=== PATIENT | female | born 1945 | race Caucasian/White ===

== ENCOUNTER 2022-07-03 18:56 | Observation (INO) | payer MEDICARE, OTHER ==
[2022-07-03] MEDS ORDERED: solu-MEDROL 125 MG, Sterile H2O 10 ml 2 ML IV ONE ×2 (19:26)
[2022-07-03] MEDS ORDERED: DUONEB 0.5-3 MG/3 ml Neb IH ONE ×2 (19:26→19:31)
[2022-07-03] MEDS ORDERED: solu-MEDROL ONE (19:30)
[2022-07-03] MEDS ORDERED: Sterile H2O 10 ml IJ ONE (19:30)
[2022-07-03 19:57] LABS: Absolute Neutrophil Ct (ANC) 5.04 x10^3/uL (1.4-6.9); Basophil (Absolute #) 0.03 x10^3/uL (0-0.4); Eosinophil % 0.2 % (0.00-5.0); Eosinophil (Absolute #) 0.01 x10^3/uL (0-0.5); Hematocrit 36.5 % (35-47); Hemoglobin 10.5 g/dL (12.0-16.0); Lymphocyte (Absolute #) 0.77 x10^3/uL (1.0-4.6); Lymphocytes % 11.9 % (24.0-44.0); Mean Corpuscular Hemoglobin 31.1 pg (26-32); Mean Corpuscular Hgb Concent. 28.8 g/dL (32-36); Monocyte (Absolute #) 0.61 x10^3/uL (0.0-1.3); Monocytes % 9.4 % (0.0-12.0); Neutrophil % 77.5 % (36.0-66.0); Platelet Count 150 x10^3/uL (150-450); Red Blood Count 3.38 x10^6/uL (4.1-5.4); Red Cell Distribution Width 12.5 % (11.5-14.0); White Blood Count 6.5 x10^3/uL (4.0-10.5)
[2022-07-03 20:20] LABS: ALBUMIN 3.8 g/dL (3.5-5.0); ALKALINE PHOSPHATASE 57 U/L (38-126); BLOOD UREA NITROGEN 15 mg/dL (7-17); CHLORIDE 82 mmol/L (98-107); Creatinine 1 0.46 mg/dL (0.52-1.04); EST GLOMERULAR FILTRATION RATE > 60.0 ML/MIN; Glucose 135 mg/dL (74-106); MAGNESIUM 1.7 mg/dL (1.6-2.3); NT PRO BNP 315 pg/mL (0-1800); Potassium 3.7 mmol/L (3.5-5.1); SGOT/AST 42 U/L (14-36); SGPT/ALT 24 U/L (0-35); SODIUM 138 mmol/L (137-145); Total Protein 6.6 g/dL (6.3-8.2)
[2022-07-03 20:24] LABS: ANION GAP 2.7 MEQ/L (5-15); Carbon Dioxide 57 mmol/L (22-30)
[2022-07-03] MEDS ORDERED: Levofloxacin 500MG/100ML D5W 500 MG/100 ML BAG IV STA (20:41)
[2022-07-03] MEDS ORDERED: Levofloxacin 500MG/100ML D5W 500 MG/100 ML BAG IV ONE (21:06)
[2022-07-03 21:29] LABS: A-aADO2 53; ABG HEMOGLOBIN 11.2; ABG POTASSIUM 3.5 (3.5-5.1); ABG SITE RIGHT RADIAL; ALLEN TEST OK? YES; ARTERIAL BLD GAS O2 SATURATION 95.9 % (95-100); ARTERIAL BLOOD GAS BASE EXCESS 29.3 (-2.0-2.0); ARTERIAL BLOOD GAS FIO2 36 %; ARTERIAL BLOOD GAS PCO2 104 mmHg (35-45); ARTERIAL BLOOD GAS PO2 74 mmHg (75-100); ARTERIAL BLOOD GAS pH 7.38 (7.35-7.45); CARBOXYHEMOGLOBIN 1.3 % THgb (0.0-6.9); HCO3- 61.5 (22-28); HGB O2 SAT 93.5 g/dF (94-100); Methhemoglobin 1.3 % (1.4-1.5)
--- NOTE | 2022-07-03 21:40 | ERPHSYRPT ---
- History of Present Illness Time Seen by Provider: 07/03/22 19:03 Source: patient Exam Limitations: no limitations Patient Subjective Stated Complaint: pt states she has been short of breath for several days, today is worse, states she has fallen on her knees today has some pain in her knees that she rates as 2/10 Triage Nursing Assessment: pt is alert and oriented, able to answer all questions, states she has been using increased oxygen from 2 litres to 4 today, sats are 93% on 4 l;itres at this time. Physician History: 77-year-old female with history of chronic respiratory failure on 2 L oxygen, COPD, hypertension, hyperlipidemia presented in the ER with worsening shortness of breath with productive cough. Patient reports she increased her oxygen to even 5 L but still feels short of breath. She is feeling weak fatigued tired and this morning her legs gave way and landed on her knee. Minimal knee pain. No difficulty movements. Did not hit her head or loss of consciousness. Subjective feeling of chills but no fever. No chest pain but some tightness. She is given Solu-Medrol on the way to the ER. Timing/Duration: week(s), gradual onset, worse Severity of Dyspnea-Max: moderate Severity of Dyspnea-Current: moderate Possible Cause: unknown cause Modifying Factors: Improves With: oxygen. Worsens With: coughing, exertion Associated Symptoms: cough, wheezing, productive cough, tightness Allergies/Adverse Reactions: Penicillins Allergy (Verified 07/03/22 19:25) Hx Tetanus, Diphtheria Vaccination/Date Given: No Travel Risk - International Travel Have you traveled outside of the country in past 3 weeks: No - Coronavirus Screening Are you exhibiting any of the following symptoms?: No Close contact with a COVID-19 positive Pt in past 14-21 Days: No - Vaccine Status Have you recieved a Covid-19 vaccination: No - Review of Systems Constitutional: Chills, Fatigue Eyes: No Symptoms Ears, Nose, & Throat: Nose Congestion Respiratory: Cough, Dyspnea, Wheezing Cardiac: Edema Abdominal/Gastrointestinal: No Symptoms Genitourinary Symptoms: No Symptoms Musculoskeletal: Arthralgias Skin: No Symptoms Neurological: No Symptoms Psychological: No Symptoms Endocrine: No Symptoms Hematologic/Lymphatic: No Symptoms Immunological/Allergic: No Symptoms - Past Medical History Pertinent Past Medical History: Yes Respiratory History: COPD Endocrine Medical History: Hypothyroidism - Past Surgical History Past Surgical History: Yes Gastrointestinal: Cholecystectomy - Social History Smoking Status: Never smoker Exposure to second hand smoke: No Drug Use: none - Nursing Vital Signs Nursing Vital Signs: Initial Vital Signs Temperature 97.3 F 07/03/22 19:05 Pulse Rate 94 H 07/03/22 19:05 Respiratory Rate 18 07/03/22 19:05 Blood Pressure 149/73 07/03/22 19:05 O2 Sat by Pulse Oximetry 92 L 07/03/22 19:05 Pain Scale Pain Intensity 2 - Physical Exam General Appearance: no apparent distress, alert Eye Exam: PERRL/EOMI Ears, Nose, Throat Exam: hearing grossly normal, normal ENT inspection, normal pharynx Neck Exam: normal inspection, non-tender, full range of motion Respiratory Exam: diminished breath sounds, rhonchi, wheezing Cardiovascular/Chest Exam: normal heart sounds, regular rate/rhythm Abdominal/Gastrointestinal Exam: soft, normal bowel sounds, No tenderness, No rebound Extremity Exam: non-tender Neurologic Exam: alert, oriented x 3, cooperative Skin Exam: normal color SpO2 Interpretation: O2 applied SpO2: 93 O2 Delivery: Nasal Cannula Ordered Tests: Active Orders 24 hr Category Date Time Status Reed Cleaner STAT Care 07/03/22 19:26 Active EKG-ER Only STAT Care 07/03/22 19:26 Active IV Insertion STAT Care 07/03/22 19:26 Active Oxygen-ED Only Nasal Cannula 4 lpm Care 07/03/22 19:26 Active CHEST 1 VIEW (PORTABLE) Stat Exams 07/03/22 19:26 Taken ABG [ARTERIAL BLOOD GASES] Stat Lab 07/03/22 21:23 Completed BLOOD CULTURE Stat Lab 07/03/22 19:54 Received CBC W DIFF Stat Lab 07/03/22 19:54 Completed CMP Stat Lab 07/03/22 19:54 Completed MAGNESIUM Stat Lab 07/03/22 19:54 Completed NT PRO BNP Stat Lab 07/03/22 19:54 Completed PROCALCITONIN Stat Lab 07/03/22 19:54 Completed TROPONIN Q4H Lab 07/03/22 19:54 Completed TROPONIN Q4H Lab 07/03/22 23:30 Ordered TROPONIN Q4H Lab 07/04/22 03:30 Ordered UA W/RFX CULTURE Stat Lab 07/03/22 Ordered Respiratory Therapy Assessment DAILY RT 07/03/22 19:47 Active Medication Summary Generic Name Dose Route Start Last Admin Trade Name Gabriela PRN Reason Stop Dose Admin Levofloxacin/Dextrose 500 mg in 100 mls @ 100 mls/hr 07/03/22 20:41 07/03/22 21:08 Levofloxacin 500mg/100ml D5w IV 07/03/22 21:40 100 ml/hr STAT STA 100 mls/hr Administration Discontinued Medications Generic Name Dose Route Start Last Admin Trade Name Gabriela PRN Reason Stop Dose Admin Albuterol/Ipratropium 3 ml 07/03/22 19:26 07/03/22 19:47 Ipratropium/Albuterol Sulfate 3 Ml Ampul.Neb IH 07/03/22 19:27 3 ml STAT ONE Administration Albuterol/Ipratropium Confirm 07/03/22 19:31 Ipratropium/Albuterol Sulfate 3 Ml Ampul.Neb Administered 07/03/22 19:32 Dose 3 ml IH .STK-MED ONE Methylprednisolone Sodium 0 mg 07/03/22 19:26 07/03/22 19:44 Succinate 125 mg/ Sterile IV 07/03/22 19:27 Not Given Water 2 ml STAT ONE Levofloxacin/Dextrose Confirm 07/03/22 21:06 Levofloxacin 500mg/100ml D5w Administered 07/03/22 21:07 Dose 500 mg in 100 mls @ ud IV .STK-MED ONE Methylprednisolone Sodium Succinate Confirm 07/03/22 19:30 Methylprednis Sod Succ 125 Mg/2 Ml Vial Administered 07/03/22 19:31 Dose 125 mg .ROUTE .STK-MED ONE Sterile Water Confirm 07/03/22 19:30 Water For Injection,Sterile 10 Ml Vial Administered 07/03/22 19:31 Dose 10 ml IJ .STK-MED ONE Lab/Rad Data: Laboratory Result Diagrams 07/03/22 19:54 07/03/22 19:54 Laboratory Results 07/03/22 07/03/22 07/03/22 Range/Units 21:23 19:54 19:54 WBC (4.0-10.5) x10^3/uL RBC (4.1-5.4) x10^6/uL Hgb (12.0-16.0) g/dL Hct (35-47) % MCV (78-100) fL MCH (26-32) pg MCHC (32-36) g/dL RDW (11.5-14.0) % Plt Count (150-450) x10^3/uL MPV (7.5-11.0) fL Gran % (36.0-66.0) % Immature Gran % (Auto) (0.00-0.4) % Nucleat RBC Rel Count (0.00-0.1) % Eos # (Auto) (0-0.5) x10^3/uL Immature Gran # (Auto) (0.00-0.03) x10^3u/L Absolute Lymphs (auto) (1.0-4.6) x10^3/uL Absolute Monos (auto) (0.0-1.3) x10^3/uL Absolute Nucleated RBC (0.00-0.01) x10^3u/L Lymphocytes % (24.0-44.0) % Monocytes % (0.0-12.0) % Eosinophils % (0.00-5.0) % Basophils % (0.0-0.4) % Absolute Granulocytes (1.4-6.9) x10^3/uL Basophils # (0-0.4) x10^3/uL Puncture Site RIGHT RADIAL pCO2 104 H* (35-45) mmHg pO2 74 L (75-100) mmHg Base Excess 29.3 H (-2.0-2.0) O2 Saturation 93.5 L (94-100) g/dF ABG pH 7.38 (7.35-7.45) ABG HCO3 61.5 H* (22-28) ABG O2 Sat (Measured) 95.9 (95-100) % Desean Test YES A-a Gradient 53 a/A Ratio 0.58 Hemoglobin 11.2 Carboxyhemoglobin 1.3 (0.0-6.9) % THgb Methemoglobin 1.3 L (1.4-1.5) % Temperature 37.0 C POC O2 Flow Rate 36 % Sodium (137-145) mmol/L Potassium 3.5 (3.5-5.1) mmol/L Chloride (98-107) mmol/L Carbon Dioxide (22-30) mmol/L Anion Gap (5-15) MEQ/L BUN (7-17) mg/dL Creatinine (0.52-1.04) mg/dL Estimated GFR ML/MIN Glucose (74-106) mg/dL Calcium (8.4-10.2) mg/dL Magnesium (1.6-2.3) mg/dL Total Bilirubin (0.2-1.3) mg/dL AST (14-36) U/L ALT (0-35) U/L Alkaline Phosphatase (38-126) U/L Troponin I 0.032 (0.000-0.034) ng/mL NT-Pro-B Natriuret Pep (0-1800) pg/mL Serum Total Protein (6.3-8.2) g/dL Albumin (3.5-5.0) g/dL Procalcitonin < 0.030 L (0.030-0.080) ng/mL 07/03/22 07/03/22 Range/Units 19:54 19:54 WBC 6.5 (4.0-10.5) x10^3/uL RBC 3.38 L (4.1-5.4) x10^6/uL Hgb 10.5 L (12.0-16.0) g/dL Hct 36.5 (35-47) % MCV 108.0 H (78-100) fL MCH 31.1 (26-32) pg MCHC 28.8 L (32-36) g/dL RDW 12.5 (11.5-14.0) % Plt Count 150 (150-450) x10^3/uL MPV 11.0 (7.5-11.0) fL Gran % 77.5 H (36.0-66.0) % Immature Gran % (Auto) 0.5 H (0.00-0.4) % Nucleat RBC Rel Count 0.0 (0.00-0.1) % Eos # (Auto) 0.01 (0-0.5) x10^3/uL Immature Gran # (Auto) 0.03 (0.00-0.03) x10^3u/L Absolute Lymphs (auto) 0.77 L (1.0-4.6) x10^3/uL Absolute Monos (auto) 0.61 (0.0-1.3) x10^3/uL Absolute Nucleated RBC 0.00 (0.00-0.01) x10^3u/L Lymphocytes % 11.9 L (24.0-44.0) % Monocytes % 9.4 (0.0-12.0) % Eosinophils % 0.2 (0.00-5.0) % Basophils % 0.5 (0.0-0.4) % Absolute Granulocytes 5.04 (1.4-6.9) x10^3/uL Basophils # 0.03 (0-0.4) x10^3/uL Puncture Site pCO2 (35-45) mmHg pO2 (75-100) mmHg Base Excess (-2.0-2.0) O2 Saturation (94-100) g/dF ABG pH (7.35-7.45) ABG HCO3 (22-28) ABG O2 Sat (Measured) (95-100) % Desean Test A-a Gradient a/A Ratio Hemoglobin Carboxyhemoglobin (0.0-6.9) % THgb Methemoglobin (1.4-1.5) % Temperature C POC O2 Flow Rate % Sodium 138 (137-145) mmol/L Potassium 3.7 (3.5-5.1) mmol/L Chloride 82 L (98-107) mmol/L Carbon Dioxide 57 H (22-30) mmol/L Anion Gap 2.7 L (5-15) MEQ/L BUN 15 (7-17) mg/dL Creatinine 0.46 L (0.52-1.04) mg/dL Estimated GFR > 60.0 ML/MIN Glucose 135 H (74-106) mg/dL Calcium 9.0 (8.4-10.2) mg/dL Magnesium 1.7 (1.6-2.3) mg/dL Total Bilirubin 0.50 (0.2-1.3) mg/dL AST 42 H (14-36) U/L ALT 24 (0-35) U/L Alkaline Phosphatase 57 (38-126) U/L Troponin I (0.000-0.034) ng/mL NT-Pro-B Natriuret Pep 315 (0-1800) pg/mL Serum Total Protein 6.6 (6.3-8.2) g/dL Albumin 3.8 (3.5-5.0) g/dL Procalcitonin (0.030-0.080) ng/mL - Progress Progress: improved Air Movement: fair Progress Note: 07/03/22 21:38 77-year-old is evaluated for worsening shortness of breath and cough needing more than usual oxygen. She is given DuoNeb, feeling some improvement on reevaluation. ABG showed hypercapnia with CO2 of 104, started on BiPAP. Does have infiltrative process on the right side on x-rays reviewed by me, official report is pending. Given dose of Levaquin. I believe patient has a combination of COPD exacerbation/pneumonia. Discussed with , reviewed history, work-up and patient is excepted for admission. Blood Culture(s) Obtained: Yes Antibiotics given: Yes Discussed with .: Merry Will see patient in: hospital (observation) Counseled pt/family regarding: lab results, diagnosis, rad results - Departure Departure Disposition: Observation Clinical Impression: COPD exacerbation, Pneumonia Respiratory failure Qualifiers: Chronicity: acute on chronic Respiratory failure complication: hypoxia and hypercapnia Qualified Code(s): J96.21 - Acute and chronic respiratory failure with hypoxia; J96.22 - Acute and chronic respiratory failure with hypercapnia Condition: Stable Critical Care Time: No Referrals: DOCTOR,NO FAMILY [Primary Care Provider] - Follow up/PCP as directed Instructions: Chronic Obstructive Pulmonary Disease
[2022-07-03 22:14] LABS: INFLUENZA A NEGATIVE (NEGATIVE); INFLUENZA B NEGATIVE (NEGATIVE); RESPIRATORY SYNCTIAL VIRUS NEGATIVE (Negative); SARS-CoV-2 Xpert Express NEGATIVE (NEGATIVE)
--- NOTE | 2022-07-03 22:30 | XRAY ---
Indication: Short of breath. Comparison: None Portable chest hyperinflated with minimal bibasilar subsegmental atelectasis/scarring and small medial right upper lobe calcified granuloma. Remaining heart and lungs unremarkable. Bony thorax intact with osteopenia and degenerative changes.
[2022-07-03] MEDS ORDERED: TYLENOL 325 MG PO PRN (22:51)
[2022-07-03] MEDS ORDERED: Zofran 4 MG/2 ML VIAL IV PRN (22:51)
[2022-07-03] MEDS ORDERED: HUMALOG SQ PRN (22:51)
[2022-07-04] MEDS: solu-MEDROL 60 MG, Sterile H2O 10 ml 2 ML IV SCH ×12 (00:05→18:01)
[2022-07-04] MEDS: DUONEB 0.5-3 MG/3 ml Neb IH SCH ×4 (00:30→19:05)
[2022-07-04] MEDS ORDERED: solu-MEDROL ONE ×3 (00:39→23:47)
[2022-07-04 04:30] LABS: ALBUMIN 3.6 g/dL (3.5-5.0); ALKALINE PHOSPHATASE 56 U/L (38-126); BLOOD UREA NITROGEN 14 mg/dL (7-17); CHLORIDE 81 mmol/L (98-107); Creatinine 1 0.47 mg/dL (0.52-1.04); EST GLOMERULAR FILTRATION RATE > 60.0 ML/MIN; Glucose 133 mg/dL (74-106); SGOT/AST 39 U/L (14-36); SGPT/ALT 24 U/L (0-35); SODIUM 136 mmol/L (137-145); Total Protein 6.4 g/dL (6.3-8.2)
[2022-07-04 04:44] LABS: Absolute Neutrophil Ct (ANC) 5.46 x10^3/uL (1.4-6.9); Basophil (Absolute #) 0.01 x10^3/uL (0-0.4); Carbon Dioxide 51 mmol/L (22-30); Eosinophil (Absolute #) 0 x10^3/uL (0-0.5); Hematocrit 35.1 % (35-47); Hemoglobin 10.5 g/dL (12.0-16.0); Lymphocyte (Absolute #) 0.29 x10^3/uL (1.0-4.6); Mean Cell Volume 103.5 fL (78-100); Mean Corpuscular Hgb Concent. 29.9 g/dL (32-36); Mean Platelet Volume 11.2 fL (7.5-11.0); Monocyte (Absolute #) 0.07 x10^3/uL (0.0-1.3); Monocytes % 1.2 % (0.0-12.0); Neutrophil % 93.3 % (36.0-66.0); Platelet Count 155 x10^3/uL (150-450); Red Blood Count 3.39 x10^6/uL (4.1-5.4); Red Cell Distribution Width 12.7 % (11.5-14.0); White Blood Count 5.9 x10^3/uL (4.0-10.5)
[2022-07-04 04:49] LABS: A-aADO2 74; ABG HEMOGLOBIN 11.4; ABG POTASSIUM 3.4 (3.5-5.1); ARTERIAL BLD GAS O2 SATURATION 97.2 % (95-100); ARTERIAL BLOOD GAS BASE EXCESS 27.5 (-2.0-2.0); ARTERIAL BLOOD GAS FIO2 36 %; ARTERIAL BLOOD GAS PCO2 85 mmHg (35-45); ARTERIAL BLOOD GAS PO2 76 mmHg (75-100); ARTERIAL BLOOD GAS pH 7.44 (7.35-7.45); CARBOXYHEMOGLOBIN 1.3 % THgb (0.0-6.9); HCO3- 57.7 (22-28); HGB O2 SAT 95.1 g/dF (94-100); Methhemoglobin 0.9 % (1.4-1.5)
[2022-07-04] MEDS: PROTONIX 40 MG IV IV SCH (09:26)
--- NOTE | 2022-07-04 14:07 | PCM.HP ---
History of Present Illness - Chief Complaint Chief Complaint: c/o worsening shortness of breath for 2-3 days History of Present Illness: is a 77 year old female.with history of chronic respiratory failure on 2 L oxygen, COPD, hypertension, hyperlipidemia presented in the ER with worsen ing shortness of breath with productive cough. Patient reports she increased her oxygen to even 5 L but still feels short of breath. She is feeling weak fatigued tired and this morning her legs gave way and landed on her knee. Minimal knee pain. No difficulty movements. Did not hit her head or loss of consciousness. Subjective feeling of chills but no fever. No chest pain but some tightness. She is given Solu-Medrol on the way to the ER. Timing/Duration: week(s), gradual onset, worse Severity of Dyspnea-Max: moderate Severity of Dyspnea-Current: moderate Possible Cause: unknown cause Modifying Factors: Improves With: oxygen. Worsens With: coughing, exertion Associated Symptoms: cough, wheezing, productive cough, tightness - Review of Systems Constitutional: Fatigue, Weakness, No Fever, No Chills Eyes: No Symptoms Ears, Nose, & Throat: No Symptoms Respiratory: Cough, Orthopnea, Short Of Breath, Wheezing Cardiac: No Chest Pain, No Edema, No Syncope Abdominal/Gastrointestinal: No Abdominal Pain, No Nausea, No Vomiting, No Diarrhea Genitourinary Symptoms: No Dysuria Musculoskeletal: No Back Pain, No Neck Pain Skin: No Rash Neurological: No Dizziness, No Focal Weakness, No Sensory Changes Psychological: No Symptoms Endocrine: No Symptoms Hematologic/Lymphatic: No Symptoms Immunological/Allergic: No Symptoms Medications & Allergies Home Medications: Home Medication List Calcium Carbonate [Calcium] 600 mg PO BID 07/03/22 [History Confirmed 07/03/22] predniSONE [Prednisone] 20 mg PO DAILY 07/03/22 [History Confirmed 07/03/22] Acetaminophen [Tylenol] 650 mg PO HS 07/04/22 [History Confirmed 07/04/22] Cholecalciferol (Vitamin D3) [D3-5000] 125 mcg PO DAILY 07/04/22 [History Confirmed 07/04/22] Allergies/Adverse Reactions: Allergies Allergy/AdvReac Type Severity Reaction Status Date / Time Penicillins Allergy Verified 07/03/22 19:25 - Past Medical History Past Medical History: Yes Neurological History: No Pertinent History Cardiac History: No Pertinent History Respiratory History: COPD, Pneumonia Endocrine Medical History: Hypothyroidism Musculoskelatal History: Arthritis GI Medical History: No Pertinent History History: No Pertinent History Pyscho-Social History: No Pertinent History Reproductive Disorders: No Pertinent History Comment: PT POOR HISTORIAN - Female History Are you now?: No - Past Surgical History Past Surgical History: Yes GI Surgical History: Cholecystectomy Other Surgical History: PT POOR HISTORIAN - Social History Smoking Status: Former smoker Exposure to second hand smoke: No Alcohol: None Drug Use: none - Physical Exam Vital Signs: Vital Signs - 24 hr Temp Pulse Resp BP Pulse Ox 07/04/22 12:48 97 H 18 97 07/04/22 12:00 97.3 F 97 H 16 138/87 07/04/22 07:45 97.1 F 87 30 H 160/74 92 L 07/04/22 05:55 80 25 H 95 07/04/22 04:00 97.5 F 103 H 24 149/74 100 07/04/22 00:30 82 23 96 07/03/22 23:27 96.9 F 92 H 20 152/80 94 L 07/03/22 21:41 93 L 07/03/22 21:00 88 24 132/73 93 L 07/03/22 19:47 90 26 H 93 L 07/03/22 19:05 97.3 F 94 H 18 149/73 94 L General Appearance: no apparent distress, alert Neurologic Exam: alert, oriented x 3, cooperative, normal mood/affect, nml cerebellar function, nml station & gait, sensation nml, No motor deficits Eye Exam: PERRL/EOMI, eyes nml inspection Ears, Nose, Throat Exam: normal ENT inspection, TMs normal, pharynx normal, moist mucous membranes Neck Exam: normal inspection, non-tender, supple, full range of motion Respiratory Exam: diminished breath sounds, accessory muscle use, crackles/rales, rhonchi, wheezing, No respiratory distress Cardiovascular Exam: regular rate/rhythm, normal heart sounds, normal peripheral pulses Gastrointestinal/Abdomen Exam: soft, normal bowel sounds, No tenderness, No mass Back Exam: normal inspection, normal range of motion, No CVA tenderness, No vertebral tenderness Extremity Exam: normal inspection, normal range of motion, pelvis stable Skin Exam: normal color, warm, dry, No rash Lymphatic Exam: No adenopathy Results - Labs Lab/Micro Results: Lab Results-Last 24 Hours 07/03/22 07/03/22 07/03/22 Range/Units 19:54 19:54 19:54 WBC 6.5 (4.0-10.5) x10^3/uL RBC 3.38 L (4.1-5.4) x10^6/uL Hgb 10.5 L (12.0-16.0) g/dL Hct 36.5 (35-47) % MCV 108.0 H (78-100) fL MCH 31.1 (26-32) pg MCHC 28.8 L (32-36) g/dL RDW 12.5 (11.5-14.0) % Plt Count 150 (150-450) x10^3/uL MPV 11.0 (7.5-11.0) fL Gran % 77.5 H (36.0-66.0) % Immature Gran % (Auto) 0.5 H (0.00-0.4) % Nucleat RBC Rel Count 0.0 (0.00-0.1) % Eos # (Auto) 0.01 (0-0.5) x10^3/uL Immature Gran # (Auto) 0.03 (0.00-0.03) x10^3u/L Absolute Lymphs (auto) 0.77 L (1.0-4.6) x10^3/uL Absolute Monos (auto) 0.61 (0.0-1.3) x10^3/uL Absolute Nucleated RBC 0.00 (0.00-0.01) x10^3u/L Lymphocytes % 11.9 L (24.0-44.0) % Monocytes % 9.4 (0.0-12.0) % Eosinophils % 0.2 (0.00-5.0) % Basophils % 0.5 (0.0-0.4) % Absolute Granulocytes 5.04 (1.4-6.9) x10^3/uL Basophils # 0.03 (0-0.4) x10^3/uL Puncture Site pCO2 (35-45) mmHg pO2 (75-100) mmHg Base Excess (-2.0-2.0) O2 Saturation (94-100) g/dF ABG pH (7.35-7.45) ABG HCO3 (22-28) ABG O2 Sat (Measured) (95-100) % [place] Test A-a Gradient a/A Ratio Hemoglobin Carboxyhemoglobin (0.0-6.9) % THgb Methemoglobin (1.4-1.5) % Temperature C POC O2 Flow Rate % Sodium 138 (137-145) mmol/L Potassium 3.7 (3.5-5.1) mmol/L Chloride 82 L (98-107) mmol/L Carbon Dioxide 57 H (22-30) mmol/L Anion Gap 2.7 L (5-15) MEQ/L BUN 15 (7-17) mg/dL Creatinine 0.46 L (0.52-1.04) mg/dL Estimated GFR > 60.0 ML/MIN Glucose 135 H (74-106) mg/dL POC Glucometer (74 to 106) mg/dL Calcium 9.0 (8.4-10.2) mg/dL Magnesium 1.7 (1.6-2.3) mg/dL Total Bilirubin 0.50 (0.2-1.3) mg/dL AST 42 H (14-36) U/L ALT 24 (0-35) U/L Alkaline Phosphatase 57 (38-126) U/L Troponin I 0.032 (0.000-0.034) ng/mL NT-Pro-B Natriuret Pep 315 (0-1800) pg/mL Serum Total Protein 6.6 (6.3-8.2) g/dL Albumin 3.8 (3.5-5.0) g/dL Procalcitonin (0.030-0.080) ng/mL Influenza Type A Ag (NEGATIVE) Influenza Type B Ag (NEGATIVE) RSV (PCR) (Negative) SARS-CoV-2 (PCR) (NEGATIVE) 07/03/22 07/03/22 07/03/22 Range/Units 19:54 21:23 21:35 WBC (4.0-10.5) x10^3/uL RBC (4.1-5.4) x10^6/uL Hgb (12.0-16.0) g/dL Hct (35-47) % MCV (78-100) fL MCH (26-32) pg MCHC (32-36) g/dL RDW (11.5-14.0) % Plt Count (150-450) x10^3/uL MPV (7.5-11.0) fL Gran % (36.0-66.0) % Immature Gran % (Auto) (0.00-0.4) % Nucleat RBC Rel Count (0.00-0.1) % Eos # (Auto) (0-0.5) x10^3/uL Immature Gran # (Auto) (0.00-0.03) x10^3u/L Absolute Lymphs (auto) (1.0-4.6) x10^3/uL Absolute Monos (auto) (0.0-1.3) x10^3/uL Absolute Nucleated RBC (0.00-0.01) x10^3u/L Lymphocytes % (24.0-44.0) % Monocytes % (0.0-12.0) % Eosinophils % (0.00-5.0) % Basophils % (0.0-0.4) % Absolute Granulocytes (1.4-6.9) x10^3/uL Basophils # (0-0.4) x10^3/uL Puncture Site RIGHT RADIAL pCO2 104 H* (35-45) mmHg pO2 74 L (75-100) mmHg Base Excess 29.3 H (-2.0-2.0) O2 Saturation 93.5 L (94-100) g/dF ABG pH 7.38 (7.35-7.45) ABG HCO3 61.5 H* (22-28) ABG O2 Sat (Measured) 95.9 (95-100) % [place] Test YES A-a Gradient 53 a/A Ratio 0.58 Hemoglobin 11.2 Carboxyhemoglobin 1.3 (0.0-6.9) % THgb Methemoglobin 1.3 L (1.4-1.5) % Temperature 37.0 C POC O2 Flow Rate 36 % Sodium (137-145) mmol/L Potassium 3.5 (3.5-5.1) mmol/L Chloride (98-107) mmol/L Carbon Dioxide (22-30) mmol/L Anion Gap (5-15) MEQ/L BUN (7-17) mg/dL Creatinine (0.52-1.04) mg/dL Estimated GFR ML/MIN Glucose (74-106) mg/dL POC Glucometer (74 to 106) mg/dL Calcium (8.4-10.2) mg/dL Magnesium (1.6-2.3) mg/dL Total Bilirubin (0.2-1.3) mg/dL AST (14-36) U/L ALT (0-35) U/L Alkaline Phosphatase (38-126) U/L Troponin I (0.000-0.034) ng/mL NT-Pro-B Natriuret Pep (0-1800) pg/mL Serum Total Protein (6.3-8.2) g/dL Albumin (3.5-5.0) g/dL Procalcitonin < 0.030 L (0.030-0.080) ng/mL Influenza Type A Ag NEGATIVE (NEGATIVE) Influenza Type B Ag NEGATIVE (NEGATIVE) RSV (PCR) NEGATIVE (Negative) SARS-CoV-2 (PCR) NEGATIVE (NEGATIVE) 07/03/22 07/04/22 07/04/22 Range/Units 23:30 03:50 03:50 WBC 5.9 (4.0-10.5) x10^3/uL RBC 3.39 L (4.1-5.4) x10^6/uL Hgb 10.5 L (12.0-16.0) g/dL Hct 35.1 (35-47) % MCV 103.5 H (78-100) fL MCH 31.0 (26-32) pg MCHC 29.9 L (32-36) g/dL RDW 12.7 (11.5-14.0) % Plt Count 155 (150-450) x10^3/uL MPV 11.2 H (7.5-11.0) fL Gran % 93.3 H (36.0-66.0) % Immature Gran % (Auto) 0.3 (0.00-0.4) % Nucleat RBC Rel Count 0.0 (0.00-0.1) % Eos # (Auto) 0 (0-0.5) x10^3/uL Immature Gran # (Auto) 0.02 (0.00-0.03) x10^3u/L Absolute Lymphs (auto) 0.29 L (1.0-4.6) x10^3/uL Absolute Monos (auto) 0.07 (0.0-1.3) x10^3/uL Absolute Nucleated RBC 0.00 (0.00-0.01) x10^3u/L Lymphocytes % 5.0 L (24.0-44.0) % Monocytes % 1.2 (0.0-12.0) % Eosinophils % 0.0 (0.00-5.0) % Basophils % 0.2 (0.0-0.4) % Absolute Granulocytes 5.46 (1.4-6.9) x10^3/uL Basophils # 0.01 (0-0.4) x10^3/uL Puncture Site pCO2 (35-45) mmHg pO2 (75-100) mmHg Base Excess (-2.0-2.0) O2 Saturation (94-100) g/dF ABG pH (7.35-7.45) ABG HCO3 (22-28) ABG O2 Sat (Measured) (95-100) % [place] Test A-a Gradient a/A Ratio Hemoglobin Carboxyhemoglobin (0.0-6.9) % THgb Methemoglobin (1.4-1.5) % Temperature C POC O2 Flow Rate % Sodium (137-145) mmol/L Potassium (3.5-5.1) mmol/L Chloride (98-107) mmol/L Carbon Dioxide (22-30) mmol/L Anion Gap (5-15) MEQ/L BUN (7-17) mg/dL Creatinine (0.52-1.04) mg/dL Estimated GFR ML/MIN Glucose (74-106) mg/dL POC Glucometer (74 to 106) mg/dL Calcium (8.4-10.2) mg/dL Magnesium (1.6-2.3) mg/dL Total Bilirubin (0.2-1.3) mg/dL AST (14-36) U/L ALT (0-35) U/L Alkaline Phosphatase (38-126) U/L Troponin I 0.034 0.027 (0.000-0.034) ng/mL NT-Pro-B Natriuret Pep (0-1800) pg/mL Serum Total Protein (6.3-8.2) g/dL Albumin (3.5-5.0) g/dL Procalcitonin (0.030-0.080) ng/mL Influenza Type A Ag (NEGATIVE) Influenza Type B Ag (NEGATIVE) RSV (PCR) (Negative) SARS-CoV-2 (PCR) (NEGATIVE) 07/04/22 07/04/22 07/04/22 Range/Units 03:50 04:44 07:36 WBC (4.0-10.5) x10^3/uL RBC (4.1-5.4) x10^6/uL Hgb (12.0-16.0) g/dL Hct (35-47) % MCV (78-100) fL MCH (26-32) pg MCHC (32-36) g/dL RDW (11.5-14.0) % Plt Count (150-450) x10^3/uL MPV (7.5-11.0) fL Gran % (36.0-66.0) % Immature Gran % (Auto) (0.00-0.4) % Nucleat RBC Rel Count (0.00-0.1) % Eos # (Auto) (0-0.5) x10^3/uL Immature Gran # (Auto) (0.00-0.03) x10^3u/L Absolute Lymphs (auto) (1.0-4.6) x10^3/uL Absolute Monos (auto) (0.0-1.3) x10^3/uL Absolute Nucleated RBC (0.00-0.01) x10^3u/L Lymphocytes % (24.0-44.0) % Monocytes % (0.0-12.0) % Eosinophils % (0.00-5.0) % Basophils % (0.0-0.4) % Absolute Granulocytes (1.4-6.9) x10^3/uL Basophils # (0-0.4) x10^3/uL Puncture Site Pending pCO2 85 H* (35-45) mmHg pO2 76 (75-100) mmHg Base Excess 27.5 H (-2.0-2.0) O2 Saturation 95.1 (94-100) g/dF ABG pH 7.44 (7.35-7.45) ABG HCO3 57.7 H* (22-28) ABG O2 Sat (Measured) 97.2 (95-100) % [place] Test Pending A-a Gradient 74 a/A Ratio 0.51 Hemoglobin 11.4 Carboxyhemoglobin 1.3 (0.0-6.9) % THgb Methemoglobin 0.9 L (1.4-1.5) % Temperature 37.0 C POC O2 Flow Rate 36 % Sodium 136 L (137-145) mmol/L Potassium 4.0 3.4 L (3.5-5.1) mmol/L Chloride 81 L (98-107) mmol/L Carbon Dioxide 51 H (22-30) mmol/L Anion Gap 8.0 (5-15) MEQ/L BUN 14 (7-17) mg/dL Creatinine 0.47 L (0.52-1.04) mg/dL Estimated GFR > 60.0 ML/MIN Glucose 133 H (74-106) mg/dL POC Glucometer 121 H (74 to 106) mg/dL Calcium 9.0 (8.4-10.2) mg/dL Magnesium (1.6-2.3) mg/dL Total Bilirubin 0.60 (0.2-1.3) mg/dL AST 39 H (14-36) U/L ALT 24 (0-35) U/L Alkaline Phosphatase 56 (38-126) U/L Troponin I (0.000-0.034) ng/mL NT-Pro-B Natriuret Pep (0-1800) pg/mL Serum Total Protein 6.4 (6.3-8.2) g/dL Albumin 3.6 (3.5-5.0) g/dL Procalcitonin (0.030-0.080) ng/mL Influenza Type A Ag (NEGATIVE) Influenza Type B Ag (NEGATIVE) RSV (PCR) (Negative) SARS-CoV-2 (PCR) (NEGATIVE) 07/04/22 Range/Units 11:28 WBC (4.0-10.5) x10^3/uL RBC (4.1-5.4) x10^6/uL Hgb (12.0-16.0) g/dL Hct (35-47) % MCV (78-100) fL MCH (26-32) pg MCHC (32-36) g/dL RDW (11.5-14.0) % Plt Count (150-450) x10^3/uL MPV (7.5-11.0) fL Gran % (36.0-66.0) % Immature Gran % (Auto) (0.00-0.4) % Nucleat RBC Rel Count (0.00-0.1) % Eos # (Auto) (0-0.5) x10^3/uL Immature Gran # (Auto) (0.00-0.03) x10^3u/L Absolute Lymphs (auto) (1.0-4.6) x10^3/uL Absolute Monos (auto) (0.0-1.3) x10^3/uL Absolute Nucleated RBC (0.00-0.01) x10^3u/L Lymphocytes % (24.0-44.0) % Monocytes % (0.0-12.0) % Eosinophils % (0.00-5.0) % Basophils % (0.0-0.4) % Absolute Granulocytes (1.4-6.9) x10^3/uL Basophils # (0-0.4) x10^3/uL Puncture Site pCO2 (35-45) mmHg pO2 (75-100) mmHg Base Excess (-2.0-2.0) O2 Saturation (94-100) g/dF ABG pH (7.35-7.45) ABG HCO3 (22-28) ABG O2 Sat (Measured) (95-100) % [place] Test A-a Gradient a/A Ratio Hemoglobin Carboxyhemoglobin (0.0-6.9) % THgb Methemoglobin (1.4-1.5) % Temperature C POC O2 Flow Rate % Sodium (137-145) mmol/L Potassium (3.5-5.1) mmol/L Chloride (98-107) mmol/L Carbon Dioxide (22-30) mmol/L Anion Gap (5-15) MEQ/L BUN (7-17) mg/dL Creatinine (0.52-1.04) mg/dL Estimated GFR ML/MIN Glucose (74-106) mg/dL POC Glucometer 195 H (74 to 106) mg/dL Calcium (8.4-10.2) mg/dL Magnesium (1.6-2.3) mg/dL Total Bilirubin (0.2-1.3) mg/dL AST (14-36) U/L ALT (0-35) U/L Alkaline Phosphatase (38-126) U/L Troponin I (0.000-0.034) ng/mL NT-Pro-B Natriuret Pep (0-1800) pg/mL Serum Total Protein (6.3-8.2) g/dL Albumin (3.5-5.0) g/dL Procalcitonin (0.030-0.080) ng/mL Influenza Type A Ag (NEGATIVE) Influenza Type B Ag (NEGATIVE) RSV (PCR) (Negative) SARS-CoV-2 (PCR) (NEGATIVE) Accuchecks Date 07/04/22 Date 07/04/22 Time 11:28 Time 07:36 - Radiology Impressions Radiology Exams & Impressions: Radiology Procedures Category Date Time Status CHEST 1 VIEW (PORTABLE) Stat Exams 07/03/22 19:26 Completed - Other Procedures and Tests Respiratory Therapy 07/03/22 19:47 Respiratory Therapy Assessment DAILY 07/03/22 21:58 BiPap/CPAP ROUTINE Assessment/Plan (1) Respiratory failure Current Visit: Yes Status: Acute Qualifiers: Chronicity: acute on chronic Respiratory failure complication: hypoxia and hypercapnia Qualified Code(s): J96.21 - Acute and chronic respiratory failure with hypoxia; J96.22 - Acute and chronic respiratory failure with hypercapnia Assessment & Plan: Chief Complaint Diagnosis Acute respiratory failure with hypercapnia Allergies Allergy/AdvReac Type Severity Reaction Status Date / Time Penicillins Allergy Verified 07/03/22 19:25 Vital Signs (Last 24 hours) Temp Pulse Resp BP Pulse Ox 07/04/22 12:48 97 H 18 97 07/04/22 12:00 97.3 F 97 H 16 138/87 07/04/22 07:45 97.1 F 87 30 H 160/74 92 L 07/04/22 05:55 80 25 H 95 07/04/22 04:00 97.5 F 103 H 24 149/74 100 07/04/22 00:30 82 23 96 07/03/22 23:27 96.9 F 92 H 20 152/80 94 L 07/03/22 21:41 93 L 07/03/22 21:00 88 24 132/73 93 L 07/03/22 19:47 90 26 H 93 L 07/03/22 19:05 97.3 F 94 H 18 149/73 94 L Home Medications Medication Instructions Recorded Confirmed Last Taken Type Calcium Carbonate [Calcium] 600 mg PO BID 07/03/22 07/03/22 Unknown History predniSONE [Prednisone] 20 mg PO DAILY 07/03/22 07/03/22 Unknown History Acetaminophen [Tylenol] 650 mg PO HS 07/04/22 07/04/22 Unknown History Cholecalciferol (Vitamin D3) 125 mcg PO DAILY 07/04/22 07/04/22 Unknown History [D3-5000] Current Medications Generic Name Dose Route Start Last Admin Trade Name Freq PRN Reason Stop Dose Admin Acetaminophen 650 mg 07/03/22 22:51 07/04/22 12:03 Acetaminophen 325 Mg Tablet PO 08/02/22 22:50 650 mg Q4H PRN PRN Administration PAIN AND/OR FEVER Acetaminophen 650 mg 07/04/22 22:00 Acetaminophen 325 Mg Tablet PO 08/03/22 21:59 HS [facility] Albuterol/Ipratropium 3 ml 07/04/22 01:00 07/04/22 12:45 Ipratropium/Albuterol Sulfate 3 Ml Ampul.Neb IH 08/03/22 00:59 3 ml Q6HRT [facility] Administration Calcium Carbonate 500 tab 07/04/22 22:00 Calcium Carbonate 500 Mg/Vitamin D 1 Tab Tablet PO 08/03/22 21:59 BID [facility] Cholecalciferol 5,000 unit 07/05/22 10:00 Cholecalciferol (Vitamin D3) 1000 Unit Tablet PO 08/04/22 09:59 DAILY [facility] Methylprednisolone Sodium 0 mg 07/04/22 00:00 07/04/22 12:04 Succinate 60 mg/ Sterile Water IV 08/03/22 00:00 60 mg 2 ml Q6HT FILEMON Administration Levofloxacin/Dextrose 500 mg in 100 mls @ 100 mls/hr 07/05/22 22:00 Levofloxacin 500mg/100ml D5w IV 08/04/22 21:59 Q48H [facility] Insulin Human Lispro 0 unit 07/03/22 22:51 Insulin Lispro 1 Unit SQ 08/02/22 22:50 UD PRN HYPERGLYCEMIA Ondansetron HCl 4 mg 07/03/22 22:51 Ondansetron Hcl 4 Mg/2 Ml Vial IV 08/02/22 22:50 Q6H PRN PRN NAUSEA/VOMITING Pantoprazole Sodium 40 mg 07/04/22 10:00 07/04/22 09:26 Pantoprazole 40 Mg Vial IV 08/03/22 09:59 40 mg Q24H10 FILEMON Administration Prednisone 20 mg 07/05/22 10:00 Prednisone 20 Mg Tablet PO 08/04/22 09:59 DAILY FILEMON Discontinued Medications Generic Name Dose Route Start Last Admin Trade Name Gabriela PRN Reason Stop Dose Admin Albuterol/Ipratropium 3 ml 07/03/22 19:26 07/03/22 19:47 Ipratropium/Albuterol Sulfate 3 Ml Ampul.Neb IH 07/03/22 19:27 3 ml STAT ONE Administration Albuterol/Ipratropium Confirm 07/03/22 19:31 Ipratropium/Albuterol Sulfate 3 Ml Ampul.Neb Administered 07/03/22 19:32 Dose 3 ml IH .STK-MED ONE Methylprednisolone Sodium 0 mg 07/03/22 19:26 07/03/22 19:44 Succinate 125 mg/ Sterile IV 07/03/22 19:27 Not Given Water 2 ml STAT ONE Levofloxacin/Dextrose 500 mg in 100 mls @ 100 mls/hr 07/03/22 20:41 07/03/22 22:08 Levofloxacin 500mg/100ml D5w IV 07/03/22 21:40 Infused STAT STA Infusion Levofloxacin/Dextrose Confirm 07/03/22 21:06 Levofloxacin 500mg/100ml D5w Administered 07/03/22 21:07 Dose 500 mg in 100 mls @ ud IV .STK-MED ONE Methylprednisolone Sodium Succinate Confirm 07/03/22 19:30 Methylprednis Sod Succ 125 Mg/2 Ml Vial Administered 07/03/22 19:31 Dose 125 mg .ROUTE .STK-MED ONE Methylprednisolone Sodium Succinate Confirm 07/04/22 00:39 Methylprednis Sod Succ 125 Mg/2 Ml Vial Administered 07/04/22 00:40 Dose 125 mg .ROUTE .STK-MED ONE Methylprednisolone Sodium Succinate Confirm 07/04/22 06:31 Methylprednis Sod Succ 125 Mg/2 Ml Vial Administered 07/04/22 06:32 Dose 125 mg .ROUTE .STK-MED ONE Sterile Water Confirm 07/03/22 19:30 Water For Injection,Sterile 10 Ml Vial Administered 07/03/22 19:31 Dose 10 ml IJ .STK-MED ONE Intake & Output (Last 24 hours) 07/02/22 07/03/22 07/04/22 07/05/22 11:59 11:59 11:59 11:59 Intake Total 550 Balance 550 Weight 73.5 kg Microbiology Results (Last 24 hours) 07/03/22 19:54 Blood Blood Culture Gram Stain - Pending 07/03/22 19:54 Blood Blood Culture - Pending 07/03/22 19:54 Blood Blood Culture Gram Stain - Pending 07/03/22 19:54 Blood Blood Culture - Pending Laboratory Results (Last 24 hours) 07/04/22 07/04/22 07/04/22 11:28 07:36 04:44 WBC RBC Hgb Hct MCV MCH MCHC RDW Plt Count MPV Gran % Immature Gran % (Auto) Nucleat RBC Rel Count Eos # (Auto) Immature Gran # (Auto) Absolute Lymphs (auto) Absolute Monos (auto) Absolute Nucleated RBC Lymphocytes % Monocytes % Eosinophils % Basophils % Absolute Granulocytes Basophils # Puncture Site pCO2 85 H* pO2 76 Base Excess 27.5 H O2 Saturation 95.1 ABG pH 7.44 ABG HCO3 57.7 H* ABG O2 Sat (Measured) 97.2 [place] Test A-a Gradient 74 a/A Ratio 0.51 Hemoglobin 11.4 Carboxyhemoglobin 1.3 Methemoglobin 0.9 L Temperature 37.0 POC O2 Flow Rate 36 Sodium Potassium 3.4 L Chloride Carbon Dioxide Anion Gap BUN Creatinine Estimated GFR Glucose POC Glucometer 195 H 121 H Calcium Magnesium Total Bilirubin AST ALT Alkaline Phosphatase Troponin I NT-Pro-B Natriuret Pep Serum Total Protein Albumin Procalcitonin Influenza Type A Ag Influenza Type B Ag RSV (PCR) SARS-CoV-2 (PCR) 07/04/22 07/04/22 07/04/22 03:50 03:50 03:50 WBC 5.9 RBC 3.39 L Hgb 10.5 L Hct 35.1 MCV 103.5 H MCH 31.0 MCHC 29.9 L RDW 12.7 Plt Count 155 MPV 11.2 H Gran % 93.3 H Immature Gran % (Auto) 0.3 Nucleat RBC Rel Count 0.0 Eos # (Auto) 0 Immature Gran # (Auto) 0.02 Absolute Lymphs (auto) 0.29 L Absolute Monos (auto) 0.07 Absolute Nucleated RBC 0.00 Lymphocytes % 5.0 L Monocytes % 1.2 Eosinophils % 0.0 Basophils % 0.2 Absolute Granulocytes 5.46 Basophils # 0.01 Puncture Site pCO2 pO2 Base Excess O2 Saturation ABG pH ABG HCO3 ABG O2 Sat (Measured) [place] Test A-a Gradient a/A Ratio Hemoglobin Carboxyhemoglobin Methemoglobin Temperature POC O2 Flow Rate Sodium 136 L Potassium 4.0 Chloride 81 L Carbon Dioxide 51 H Anion Gap 8.0 BUN 14 Creatinine 0.47 L Estimated GFR > 60.0 Glucose 133 H POC Glucometer Calcium 9.0 Magnesium Total Bilirubin 0.60 AST 39 H ALT 24 Alkaline Phosphatase 56 Troponin I 0.027 NT-Pro-B Natriuret Pep Serum Total Protein 6.4 Albumin 3.6 Procalcitonin Influenza Type A Ag Influenza Type B Ag RSV (PCR) SARS-CoV-2 (PCR) 07/03/22 07/03/22 07/03/22 23:30 21:35 21:23 WBC RBC Hgb Hct MCV MCH MCHC RDW Plt Count MPV Gran % Immature Gran % (Auto) Nucleat RBC Rel Count Eos # (Auto) Immature Gran # (Auto) Absolute Lymphs (auto) Absolute Monos (auto) Absolute Nucleated RBC Lymphocytes % Monocytes % Eosinophils % Basophils % Absolute Granulocytes Basophils # Puncture Site RIGHT RADIAL pCO2 104 H* pO2 74 L Base Excess 29.3 H O2 Saturation 93.5 L ABG pH 7.38 ABG HCO3 61.5 H* ABG O2 Sat (Measured) 95.9 [place] Test YES A-a Gradient 53 a/A Ratio 0.58 Hemoglobin 11.2 Carboxyhemoglobin 1.3 Methemoglobin 1.3 L Temperature 37.0 POC O2 Flow Rate 36 Sodium Potassium 3.5 Chloride Carbon Dioxide Anion Gap BUN Creatinine Estimated GFR Glucose POC Glucometer Calcium Magnesium Total Bilirubin AST ALT Alkaline Phosphatase Troponin I 0.034 NT-Pro-B Natriuret Pep Serum Total Protein Albumin Procalcitonin Influenza Type A Ag NEGATIVE Influenza Type B Ag NEGATIVE RSV (PCR) NEGATIVE SARS-CoV-2 (PCR) NEGATIVE 07/03/22 07/03/22 07/03/22 19:54 19:54 19:54 WBC RBC Hgb Hct MCV MCH MCHC RDW Plt Count MPV Gran % Immature Gran % (Auto) Nucleat RBC Rel Count Eos # (Auto) Immature Gran # (Auto) Absolute Lymphs (auto) Absolute Monos (auto) Absolute Nucleated RBC Lymphocytes % Monocytes % Eosinophils % Basophils % Absolute Granulocytes Basophils # Puncture Site pCO2 pO2 Base Excess O2 Saturation ABG pH ABG HCO3 ABG O2 Sat (Measured) [place] Test A-a Gradient a/A Ratio Hemoglobin Carboxyhemoglobin Methemoglobin Temperature POC O2 Flow Rate Sodium 138 Potassium 3.7 Chloride 82 L Carbon Dioxide 57 H Anion Gap 2.7 L BUN 15 Creatinine 0.46 L Estimated GFR > 60.0 Glucose 135 H POC Glucometer Calcium 9.0 Magnesium 1.7 Total Bilirubin 0.50 AST 42 H ALT 24 Alkaline Phosphatase 57 Troponin I 0.032 NT-Pro-B Natriuret Pep 315 Serum Total Protein 6.6 Albumin 3.8 Procalcitonin < 0.030 L Influenza Type A Ag Influenza Type B Ag RSV (PCR) SARS-CoV-2 (PCR) 07/03/22 19:54 WBC 6.5 RBC 3.38 L Hgb 10.5 L Hct 36.5 MCV 108.0 H MCH 31.1 MCHC 28.8 L RDW 12.5 Plt Count 150 MPV 11.0 Gran % 77.5 H Immature Gran % (Auto) 0.5 H Nucleat RBC Rel Count 0.0 Eos # (Auto) 0.01 Immature Gran # (Auto) 0.03 Absolute Lymphs (auto) 0.77 L Absolute Monos (auto) 0.61 Absolute Nucleated RBC 0.00 Lymphocytes % 11.9 L Monocytes % 9.4 Eosinophils % 0.2 Basophils % 0.5 Absolute Granulocytes 5.04 Basophils # 0.03 Puncture Site pCO2 pO2 Base Excess O2 Saturation ABG pH ABG HCO3 ABG O2 Sat (Measured) [place] Test A-a Gradient a/A Ratio Hemoglobin Carboxyhemoglobin Methemoglobin Temperature POC O2 Flow Rate Sodium Potassium Chloride Carbon Dioxide Anion Gap BUN Creatinine Estimated GFR Glucose POC Glucometer Calcium Magnesium Total Bilirubin AST ALT Alkaline Phosphatase Troponin I NT-Pro-B Natriuret Pep Serum Total Protein Albumin Procalcitonin Influenza Type A Ag Influenza Type B Ag RSV (PCR) SARS-CoV-2 (PCR) Orders (Last 24 hours) Category Date Time Status Bedrest ROUTINE Activity 07/03/22 22:51 Active Up With Assistance ROUTINE Activity 07/03/22 22:51 Active Spaghetti Press Helper STAT Care 07/03/22 19:26 Completed Code Status Order ROUTINE Care 07/03/22 22:51 Active Code Status Order ROUTINE Care 07/03/22 22:51 Completed EKG-ER Only STAT Care 07/03/22 19:26 Completed Fall Protocol Q1H Care 07/03/22 22:51 Active IV Care Q6H Care 07/03/22 22:51 Active IV Care Q6H Care 07/03/22 22:51 Completed IV Insertion STAT Care 07/03/22 19:26 Completed Oxygen-ED Only Nasal Cannula 4 lpm Care 07/03/22 22:52 Active POCT Glucose Check ACHS Care 07/03/22 22:[address] in Observation ROUTINE Care 07/03/22 22:51 Active Alex Simpson ROUTINE Care 07/03/22 22:51 Active Weight,Daily 0600 Care 07/03/22 22:51 Active Carb Diet 1999 [Consistent Carbohydrate Diet 1999 Diet 07/04/22 Breakfast Active Calorie] CHEST 1 VIEW (PORTABLE) Stat Exams 07/03/22 19:26 Completed ABG [ARTERIAL BLOOD GASES] AM.LAB Lab 07/04/22 04:44 Results ABG [ARTERIAL BLOOD GASES] Stat Lab 07/03/22 21:23 Completed BLOOD CULTURE Stat Lab 07/03/22 19:54 Received CBC W DIFF AM.LAB Lab 07/04/22 03:50 Completed CBC W DIFF Stat Lab 07/03/22 19:54 Completed CMP AM.LAB Lab 07/04/22 03:50 Completed CMP Stat Lab 07/03/22 19:54 Completed COVID/FLU/RSV Panel Stat Lab 07/03/22 21:35 Completed MAGNESIUM Stat Lab 07/03/22 19:54 Completed NT PRO BNP Stat Lab 07/03/22 19:54 Completed POCT GLUCOSE Stat Lab 07/04/22 07:36 Completed POCT GLUCOSE Stat Lab 07/04/22 11:28 Completed PROCALCITONIN Stat Lab 07/03/22 19:54 Completed TROPONIN Q4H Lab 07/03/22 19:54 Completed TROPONIN Q4H Lab 07/03/22 23:30 Completed TROPONIN Q4H Lab 07/04/22 03:50 Completed Acetaminophen 325 mg [Tylenol 325 mg] Med 07/04/22 22:00 Active 650 mg PO HS Acetaminophen 325 mg [Tylenol 325 mg] Med 07/03/22 22:51 Active 650 mg PO Q4H PRN PRN Albuterol/Ipratropium 3ml Neb* [DUONEB 0.5-3 MG/3 ml Med 07/03/22 19:31 Discontinued Neb] 3 ml IH .STK-MED ONE Albuterol/Ipratropium 3ml Neb* [DUONEB 0.5-3 MG/3 ml Med 07/04/22 01:00 Active Neb] 3 ml IH Q6HRT Albuterol/Ipratropium 3ml Neb* [DUONEB 0.5-3 MG/3 ml Med 07/03/22 19:26 Discontinued Neb] 3 ml IH STAT ONE Calcium Carb/Vitamin D 500 mg* [Calcium 500MG W/Vit D Med 07/04/22 22:00 Active Tablet] 500 tab PO BID Cholecalciferol (Vitamin D3) [Vitamin D] Med 07/05/22 10:00 Active 5,000 unit PO DAILY Insulin Lispro [Humalog] Med 07/03/22 22:51 Active See Dose Instructions SQ UD PRN Levofloxacin [Levofloxacin 500MG/100ML D5W] Med 07/05/22 22:00 Active 500 mg in 100 ml IV Q48H Levofloxacin [Levofloxacin 500MG/100ML D5W] Med 07/03/22 20:41 Discontinued 500 mg in 100 ml IV STAT Levofloxacin [Levofloxacin 500MG/100ML D5W] Med 07/03/22 21:06 Discontinued 500 mg in 100 ml IV UD Methylprednis Sod Succ 125 mg* [solu-MEDROL] Med 07/03/22 19:30 Discontinued 125 mg .ROUTE .STK-MED ONE Methylprednis Sod Succ 125 mg* [solu-MEDROL] Med 07/04/22 00:39 Discontinued 125 mg .ROUTE .STK-MED ONE Methylprednis Sod Succ 125 mg* [solu-MEDROL] Med 07/04/22 06:31 Discontinued 125 mg .ROUTE .STK-MED ONE Methylprednis Sod Succ 125 mg* [solu-MEDROL] 125 mg Med 07/03/22 19:26 Discontinued Water For Injection,Sterile [Sterile H2O 10 ml] 2 ml IV STAT Methylprednis Sod Succ 125 mg* [solu-MEDROL] 60 mg Med 07/04/22 00:00 Active Water For Injection,Sterile [Sterile H2O 10 ml] 2 ml IV Q6HT Ondansetron HCl 4 mg/2 ml [Zofran 4 MG/2 ML VIAL] Med 07/03/22 22:51 Active 4 mg IV Q6H PRN PRN Pantoprazole 40 mg [Protonix 40 mg IV] Med 07/04/22 10:00 Active 40 mg IV Q24H10 Prednisone 20 mg [Deltasone 20 mg] Med 07/05/22 10:00 Active 20 mg PO DAILY Water For Injection,Sterile [Sterile H2O 10 ml] Med 07/03/22 19:30 Discontinued 10 ml IJ .STK-MED ONE BiPap/CPAP ROUTINE RT 07/03/22 21:58 Active Pulse Oximetry .continuos RT 07/03/22 23:31 Active RT Screen per Nursing Assess ONCE RT 07/04/22 00:20 Completed Respiratory Therapy Assessment DAILY RT 07/03/22 19:47 Active Patient Care Notes (Last 24 hours) 07/04/22 09:58 Nursing Note by Paulina Zepeda pt is unsure of medications, pt states that she's supposed to take levothyroxine but changed her dosage and days multiple times. called pt's pharmacy to verify meds and the pharmacist states that the pt has not filled anything except for prednisone since december. pt denies using any other pharmacy for prescriptions. Initialized on 07/04/22 09:58 - END OF NOTE Code(s): J96.90 - RESPIRATORY FAILURE, UNSP, UNSP W HYPOXIA OR HYPERCAPNIA (2) COPD exacerbation Current Visit: Yes Status: Acute Code(s): J44.1 - CHRONIC OBSTRUCTIVE PULMONARY DISEASE W (ACUTE) EXACERBATION
[2022-07-04] MEDS ORDERED: NON-FORMULARY ITEM (Calcium Carbonate [Calcium] 600 MG Tablet) PO SCH (22:00)
[2022-07-04] MEDS ORDERED: TYLENOL 325 MG PO SCH (22:00)
[2022-07-04] MEDS ORDERED: NON-FORMULARY ITEM (Acetaminophen [Tylenol] 325 MG Capsule) PO SCH (22:00)
[2022-07-04] MEDS: Calcium 500MG W/Vit D Tablet PO SCH (22:04)
[2022-07-05] MEDS: DUONEB 0.5-3 MG/3 ml Neb IH SCH ×3 (00:15→13:47)
[2022-07-05] MEDS: solu-MEDROL 60 MG, Sterile H2O 10 ml 2 ML IV SCH ×4 (00:49→06:42)
[2022-07-05] MEDS ORDERED: solu-MEDROL ONE (06:24)
[2022-07-05 07:21] VITALS: BP 166/70
--- NOTE | 2022-07-05 09:02 | PCM.DS ---
Discharge Summary Date of Admission: 07/03/22 22:50 Admitting Physician: BERNARD PENA Primary Care Provider: NO FAMILY DOCTOR Allergies Allergies Penicillins Allergy (Verified 07/03/22 19:25) Hospital Summary - Hospital Course Hospital Course: Chief Complaint Diagnosis c/o worsening shortness of breath for 2-3 days Allergies Allergy/AdvReac Type Severity Reaction Status Date / Time Penicillins Allergy Verified 07/03/22 19:25 Vital Signs (Last 24 hours) Temp Pulse Resp BP Pulse Ox 07/05/22 07:49 99 H 20 94 L 07/05/22 07:20 97.1 F 93 H 24 166/70 95 07/05/22 04:00 96.4 F 83 16 142/71 98 07/05/22 00:15 72 20 97 07/05/22 00:00 69 20 100 07/04/22 19:59 96.9 F 88 16 127/60 96 07/04/22 19:05 85 18 98 07/04/22 15:48 97.3 F 103 H 30 H 136/63 93 L 07/04/22 12:48 97 H 18 97 07/04/22 12:00 97.3 F 97 H 16 138/87 Home Medications Medication Instructions Recorded Confirmed Last Taken Type Calcium Carbonate [Calcium] 600 mg PO BID 07/03/22 07/03/22 Unknown History predniSONE [Prednisone] 20 mg PO DAILY 07/03/22 07/03/22 Unknown History Acetaminophen [Tylenol] 650 mg PO HS 07/04/22 07/04/22 Unknown History Cholecalciferol (Vitamin D3) 125 mcg PO DAILY 07/04/22 07/04/22 Unknown History [D3-5000] Levofloxacin [Levofloxacin 500 500 mg PO DAILY 5 Days #5 tablet 07/05/22 Unknown Rx MG Tablet] Current Medications Generic Name Dose Route Start Last Admin Trade Name Freq PRN Reason Stop Dose Admin Acetaminophen 650 mg 07/03/22 22:51 07/04/22 12:03 Acetaminophen 325 Mg Tablet PO 08/02/22 22:50 650 mg Q4H PRN PRN Administration PAIN AND/OR FEVER Acetaminophen 650 mg 07/04/22 22:00 07/04/22 21:57 Acetaminophen 325 Mg Tablet PO 08/03/22 21:59 650 mg HS FILEMON Administration Albuterol/Ipratropium 3 ml 07/04/22 01:00 07/05/22 07:45 Ipratropium/Albuterol Sulfate 3 Ml Ampul.Neb IH 08/03/22 00:59 3 ml Q6HRT [facility] Administration Calcium Carbonate 500 tab 07/04/22 22:00 07/04/22 22:04 Calcium Carbonate 500 Mg/Vitamin D 1 Tab Tablet PO 08/03/22 21:59 Not Given BID [facility] Cholecalciferol 5,000 unit 07/05/22 10:00 Cholecalciferol (Vitamin D3) 1000 Unit Tablet PO 08/04/22 09:59 DAILY [facility] Methylprednisolone Sodium 0 mg 07/04/22 00:00 07/05/22 06:42 Succinate 60 mg/ Sterile Water IV 08/03/22 00:00 60 mg 2 ml Q6HT [facility] Administration Levofloxacin/Dextrose 500 mg in 100 mls @ 100 mls/hr 07/05/22 22:00 Levofloxacin 500mg/100ml D5w IV 08/04/22 21:59 Q48H [facility] Insulin Human Lispro 0 unit 07/03/22 22:51 07/04/22 21:57 Insulin Lispro 1 Unit SQ 08/02/22 22:50 2 unit UD PRN Administration HYPERGLYCEMIA Ondansetron HCl 4 mg 07/03/22 22:51 Ondansetron Hcl 4 Mg/2 Ml Vial IV 08/02/22 22:50 Q6H PRN PRN NAUSEA/VOMITING Pantoprazole Sodium 40 mg 07/04/22 10:00 07/04/22 09:26 Pantoprazole 40 Mg Vial IV 08/03/22 09:59 40 mg Q24H10 [facility] Administration Prednisone 20 mg 07/05/22 10:00 Prednisone 20 Mg Tablet PO 08/04/22 09:59 DAILY [facility] Discontinued Medications Generic Name Dose Route Start Last Admin Trade Name Freq PRN Reason Stop Dose Admin Albuterol/Ipratropium 3 ml 07/03/22 19:26 07/03/22 19:47 Ipratropium/Albuterol Sulfate 3 Ml Ampul.Neb IH 07/03/22 19:27 3 ml STAT ONE Administration Albuterol/Ipratropium Confirm 07/03/22 19:31 Ipratropium/Albuterol Sulfate 3 Ml Ampul.Neb Administered 07/03/22 19:32 Dose 3 ml IH .STK-MED ONE Methylprednisolone Sodium 0 mg 07/03/22 19:26 07/03/22 19:44 Succinate 125 mg/ Sterile IV 07/03/22 19:27 Not Given Water 2 ml STAT ONE Levofloxacin/Dextrose 500 mg in 100 mls @ 100 mls/hr 07/03/22 20:41 07/03/22 22:08 Levofloxacin 500mg/100ml D5w IV 07/03/22 21:40 Infused STAT STA Infusion Levofloxacin/Dextrose Confirm 07/03/22 21:06 Levofloxacin 500mg/100ml D5w Administered 07/03/22 21:07 Dose 500 mg in 100 mls @ ud IV .STK-MED ONE Methylprednisolone Sodium Succinate Confirm 07/03/22 19:30 Methylprednis Sod Succ 125 Mg/2 Ml Vial Administered 07/03/22 19:31 Dose 125 mg .ROUTE .STK-MED ONE Methylprednisolone Sodium Succinate Confirm 07/04/22 00:39 Methylprednis Sod Succ 125 Mg/2 Ml Vial Administered 07/04/22 00:40 Dose 125 mg .ROUTE .STK-MED ONE Methylprednisolone Sodium Succinate Confirm 07/04/22 06:31 Methylprednis Sod Succ 125 Mg/2 Ml Vial Administered 07/04/22 06:32 Dose 125 mg .ROUTE .STK-MED ONE Methylprednisolone Sodium Succinate Confirm 07/04/22 23:47 Methylprednis Sod Succ 125 Mg/2 Ml Vial Administered 07/04/22 23:48 Dose 125 mg .ROUTE .STK-MED ONE Methylprednisolone Sodium Succinate Confirm 07/05/22 06:24 Methylprednis Sod Succ 125 Mg/2 Ml Vial Administered 07/05/22 06:25 Dose 125 mg .ROUTE .STK-MED ONE Sterile Water Confirm 07/03/22 19:30 Water For Injection,Sterile 10 Ml Vial Administered 07/03/22 19:31 Dose 10 ml IJ .STK-MED ONE Intake & Output (Last 24 hours) 07/02/22 07/03/22 07/04/22 07/05/22 11:59 11:59 11:59 11:59 Intake Total 550 800 Balance 550 800 Weight 73.5 kg 72.4 kg Microbiology Results (Last 24 hours) 07/03/22 19:54 Blood Blood Culture Gram Stain - Pending 07/03/22 19:54 Blood Blood Culture - Preliminary NO GROWTH TO DATE 07/03/22 19:54 Blood Blood Culture Gram Stain - Pending 07/03/22 19:54 Blood Blood Culture - Preliminary NO GROWTH TO DATE Laboratory Results (Last 24 hours) 07/05/22 07/04/22 07/04/22 07:10 Unknown 20:58 POC Glucometer 134 H 204 H Hemoglobin A1c 5.22 07/04/22 07/04/22 16:09 11:28 POC Glucometer 146 H 195 H Hemoglobin A1c Orders (Last 24 hours) Category Date Time Status POCT GLUCOSE Stat Lab 07/04/22 11:28 Completed POCT GLUCOSE Stat Lab 07/04/22 16:09 Completed POCT GLUCOSE Stat Lab 07/04/22 20:58 Completed POCT GLUCOSE Stat Lab 07/05/22 07:10 Completed Acetaminophen 325 mg [Tylenol 325 mg] Med 07/04/22 22:00 Active 650 mg PO HS Calcium Carb/Vitamin D 500 mg* [Calcium 500MG W/Vit D Med 07/04/22 22:00 Active Tablet] 500 tab PO BID Cholecalciferol (Vitamin D3) [Vitamin D] Med 07/05/22 10:00 Active 5,000 unit PO DAILY Levofloxacin [Levofloxacin 500MG/100ML D5W] Med 07/05/22 22:00 Active 500 mg in 100 ml IV Q48H Methylprednis Sod Succ 125 mg* [solu-MEDROL] Med 07/04/22 23:47 Discontinued 125 mg .ROUTE .STK-MED ONE Methylprednis Sod Succ 125 mg* [solu-MEDROL] Med 07/05/22 06:24 Discontinued 125 mg .ROUTE .STK-MED ONE Pantoprazole 40 mg [Protonix 40 mg IV] Med 07/04/22 10:00 Active 40 mg IV Q24H10 Prednisone 20 mg [Deltasone 20 mg] Med 07/05/22 10:00 Active 20 mg PO DAILY Patient Care Notes (Last 24 hours) 07/04/22 09:58 Nursing Note by Paulina Zepeda pt is unsure of medications, pt states that she's supposed to take levothyroxine but changed her dosage and days multiple times. called pt's pharmacy to verify meds and the pharmacist states that the pt has not filled anything except for prednisone since december. pt denies using any other pharmacy for prescriptions. Initialized on 07/04/22 09:58 - END OF NOTE - Vitals & Intake/Output Vital Signs: Vital Signs Temperature 97.1 F 07/05/22 07:20 Pulse Rate 99 H 07/05/22 07:49 Respiratory Rate 20 07/05/22 07:49 Blood Pressure 166/70 07/05/22 07:20 O2 Sat by Pulse Oximetry 94 L 07/05/22 07:49 Intake & Output: Intake & Output 07/02/22 07/03/22 07/04/22 07/05/22 11:59 11:59 11:59 11:59 Intake Total 550 800 Balance 550 800 Weight 73.5 kg 72.4 kg - Lab Result Diagrams: 07/04/22 03:50 07/04/22 03:50 Lab Results-Last 24 Hrs: Lab Results-Last 24 Hours 07/04/22 07/04/22 07/04/22 Range/Units 11:28 16:09 20:58 POC Glucometer 195 H 146 H 204 H (74 to 106) mg/dL Hemoglobin A1c (4.5-6.0) % 07/04/22 07/05/22 Range/Units Unknown 07:10 POC Glucometer 134 H (74 to 106) mg/dL Hemoglobin A1c 5.22 (4.5-6.0) % Micro Results-Entire Visit: Microbiology 07/03/22 19:54 Blood Culture - Preliminary Blood NO GROWTH TO DATE 07/03/22 19:54 Blood Culture - Preliminary Blood NO GROWTH TO DATE Accuchecks Date 07/05/22 Date 07/04/22 Date 07/04/22 Date 07/04/22 Time 07:10 Time 21:00 Time 16:09 Time 11:28 - Radiology Exams Ordered Rad Exams-Entire Visit: Radiology Procedures Category Date Time Status CHEST 1 VIEW (PORTABLE) Stat Exams 07/03/22 19:26 Completed - Procedures and Test Procedures and Tests throughout Hospitalization: Therapy Orders & Screens 07/03/22 19:47 Respiratory Therapy Assessment DAILY Comment: 07/03/22 21:58 BiPap/CPAP ROUTINE Comment: 07/04/22 00:20 RT Screen per Nursing Assess ONCE Comment: Protocol Order Physician Instructions: Greater than 3 points order RT Admission Screen Reason For Exam: Triggered on Admission Diagnosis: Acute respiratory failure with hypercapnia Diagnosis: Acute respiratory failure with hypercapnia Pneumonia: Yes Home O2: Yes Asthma: No CHF: No Home CPAP/BIPAP: No Home Nebs/MDI: Yes Total Points: 13 Discharge Exam General Appearance: no apparent distress, alert Neurologic Exam: alert, oriented x 3, cooperative, normal mood/affect, nml cerebellar function, sensation nml, No motor deficits Eye Exam: PERRL, EOMI, eyes nml inspection Ears, Nose, Throat Exam: normal ENT inspection, pharynx normal, moist mucous membranes Neck Exam: normal inspection, non-tender, supple, full range of motion Respiratory Exam: diminished breath sounds, wheezing, No respiratory distress Cardiovascular Exam: regular rate/rhythm, normal heart sounds Gastrointestinal/Abdomen Exam: soft, No tenderness, No mass Pelvic Exam: deferred Rectal Exam: deferred Back Exam: normal inspection, normal range of motion, No CVA tenderness, No vertebral tenderness Extremity Exam: normal inspection, normal range of motion Skin Exam: normal color, warm, dry Final Diagnosis/Problem List - Final Discharge Diagnosis/Problem (1) COPD exacerbation Current Visit: Yes Status: Resolved Assessment & Plan: Patient is going to increase her prednisone to 20 mg daily for at least 1 week and then she will go back to 10 mg daily. Patient is advised to use nebulizer treatment at least 4 times a day at home. Patient is also started on Advair 250-50 inhaler 1 puff twice a day. Patient is also scheduled for cardiopulmonary rehab as an outpatient at [facility]. Patient is also arranged for home health. Patient is instructed about her disease progress and process. She is already on oxygen at home which she is using around 4 L per kathryn al cannula she is advised to continue the same. Patient is also advised if she is still smoking she should quit smoking. Code(s): J44.1 - CHRONIC OBSTRUCTIVE PULMONARY DISEASE W (ACUTE) EXACERBATION (2) Respiratory failure Current Visit: Yes Status: Chronic Code(s): J96.90 - RESPIRATORY FAILURE, UNSP, UNSP W HYPOXIA OR HYPERCAPNIA - Discharge Discharge Date: 07/05/22 Disposition: HOME HEALTH SERVICE Condition: Stable Prescriptions: New Levofloxacin [Levofloxacin 500 MG Tablet] 500 mg PO DAILY 5 Days #5 tablet Continue predniSONE [Prednisone] 20 mg PO DAILY Calcium Carbonate [Calcium] 600 mg PO BID Cholecalciferol (Vitamin D3) [D3-5000] 125 mcg PO DAILY Acetaminophen [Tylenol] 650 mg PO HS Additional Instructions: Outpatient cardiopulmonary rehab. Outpatient home health services. Follow up with: RANDI HERNANDEZ [ACTIVE STAFF] - 2 weeks BERNARD PENA MD [ACTIVE STAFF] - 2 weeks
[2022-07-05] MEDS: PROTONIX 40 MG IV IV SCH (09:13)
[2022-07-05] MEDS: Calcium 500MG W/Vit D Tablet PO SCH (09:15)
[2022-07-05] MEDS ORDERED: DELTASONE 20 MG PO SCH (10:00)
[2022-07-05] MEDS ORDERED: NON-FORMULARY ITEM (Cholecalciferol (Vitamin D3) [D3-5000] 125 MCG Capsule) PO SCH (10:00)
[2022-07-05] MEDS ORDERED: VITAMIN D PO SCH (10:00)
[2022-07-05 13:51] VITALS: PULSE 102; O2SAT 91
[2022-07-05] MEDS ORDERED: Levofloxacin 500MG/100ML D5W 500 MG/100 ML BAG IV SCH (22:00)
== END 2022-07-05 15:00 | disposition home health service (06) ==
LOC: ED 18:56 → MED SURG 22:50
PROVIDERS: ADMIT General Practice; ATTEND General Practice
DX: J44.1 Chronic obstructive pulmonary disease with (acute) exacerbation (principal); J96.90 Respiratory failure, unspecified, unspecified whether with hypoxia or hypercapnia; I10 Essential (primary) hypertension; E78.5 Hyperlipidemia, unspecified; W18.30XA Fall on same level, unspecified, initial encounter; Z79.899 Other long term (current) drug therapy; Z20.828 Contact with and (suspected) exposure to other viral communicable diseases; Z99.81 Dependence on supplemental oxygen
CPT/HCPCS: 0241U; 36000; 36415; 36600; 71045; 80053; 82375; 82803; 82947; 83036; 83735; 83880; 84145; 84484; 85025; 87040; 93005; 93041; 93268; 94002; 94003; 94640; 94762; 99285; G0378; 94660; J1817; J1956; J2930; A9270-GY